=== PATIENT | female | born 1980 | race Caucasian/White ===

== ENCOUNTER 2016-11-02 00:08 | Inpatient (IN) | payer BC ==
[~2016-11-02] VITALS: Ht 157.5 cm; Wt 88.5 kg
[~2016-11-02 00:08] MED LIST: FERR325T51 PO; MTR600X PO; PRENTAB26 PO
[2016-11-02] MEDS ORDERED: PENICILLIN G POTASSIUM IV 3 MU in DEXTROSE 5% 100ML 100 ML IV PRN (00:45)
[2016-11-02] MEDS ORDERED: PENICILLIN G POTASSIUM IV 6 MU in DEXTROSE 5% 250ML 250 ML IV ONE (00:45)
[2016-11-02] MEDS ORDERED: LACTATED RINGER'S 1000ML 1,000 ML IV SCH (00:45)
[2016-11-02] MEDS ORDERED: LACTATED RINGER'S 1000ML 1,000 ML IV PRN (00:45)
[2016-11-02] MEDS ORDERED: EpHEDrine SULFATE INJ 50 MG/ML AMP ONE (01:22)
[2016-11-02] MEDS ORDERED: FENTANYL 2MCG/ML ROPIV 1.25MG/ML 100ML BAG EPI ONE (01:22)
[2016-11-02] MEDS ORDERED: BUPIVACAINE 0.25% 30 ML VIAL ONE (01:22)
[2016-11-02] MEDS ORDERED: FENTANYL CITRATE INJ 50 MCG/1 ML 2 ML VIAL ONE (01:23)
--- NOTE | 2016-11-02 01:28 | HISTORY & PHYSICAL EXAMINATION ---
DATE OF ADMISSION: 11/02/2016 CHIEF COMPLAINT: Contractions. HISTORY OF PRESENT ILLNESS: The patient is a 36-year-old G2, P1-0-0-1 at 40 weeks and 2 days of gestation, who has been feeling contractions and pelvic pressure for the last 2 hours. She presented to labor and delivery with those complaints. She denies leakage of fluid or vaginal bleeding. She reported good movements. She denies headaches, change in her vision, nausea, vomiting, epigastric or right upper quadrant pain. Her has been complicated by: 1. Advanced maternal age. 2. Abnormal glucose tolerance in . Three-hour OGGT was normal. GBS positive. PAST MEDICAL HISTORY: As above and exercise induced asthma. PAST SURGICAL HISTORY: Hysteroscopy, myomectomy with MyoSure in 2013 at [facility], colposcopy of cervix in 2003. MEDICATIONS: vitamins and iron sulfate. ALLERGIES: SULFA CAUSED LIP SWELLING. SOCIAL HISTORY: The patient denies smoking, alcohol or drug use. She is , lives with her and her 1-year-old daughter. OBSTETRICAL HISTORY: The patient delivered full term September 2015, spontaneous vaginal, no complications. GYNECOLOGIC HISTORY: The patient denies any history of STDs including Chlamydia, gonorrhea, herpes. LABS: Her blood type is A positive, antibody screen negative. H\T\H was 11/33. Rubella titer positive, RPR nonreactive, hepatitis B surface antigen negative. Urine culture was negative. GC chlamydia cultures were negative. Glucola was 134. Repeat H\T\H was 10.5/30.1. Three-hour OGGT was within normal limits. GBS culture was positive on September 29. PHYSICAL EXAMINATION: GENERAL: The patient is alert, oriented x3, she is in moderate distress with contractions. VITAL SIGNS: Stable. Afebrile. CARDIOVASCULAR SYSTEM: S1, S2, RRR. LUNGS: Clear to auscultation bilaterally. ABDOMEN: Soft, gravid. Smooth 7-1/2 to 8 pounds. EXTREMITIES: Nontender, no edema. PELVIC: Cervix is 6 cm dilated, 80% effaced, -2, vertex. heart rate 130s with [id number] variability, no decelerations. [place] contractions every 2-4 minutes. ASSESSMENT: The patient is a 36-year-old 2, para 1-0-0-1 at 40 weeks and 2 days of gestation, presenting in active labor with contractions. Vital signs stable, afebrile. heart rate reassuring. Group B streptococcus positive. PLAN: Admit her, start IV fluids, CBC. The patient desires epidural for pain Anticipate spontaneous vaginal delivery. MTDD
[2016-11-02 01:56] LABS: HEMATOCRIT 29.1 % (37-47); MEAN CELL VOLUME 83.4 fL (80-100); MEAN CORPUSCULAR HEMOGLOBIN 27.8 pg (25-34); MEAN CORPUSCULAR HGB CONC 33.3 g/dl (32-36); MEAN PLATELET VOLUME 9.9 fL (7.4-10.4); PLATELET COUNT 224 K/uL (130-400); RED BLOOD COUNT 3.49 M/uL (4.2-5.4); WHITE BLOOD COUNT 15.07 K/uL (4.8-10.8)
[2016-11-02] MEDS ORDERED: LACTATED RINGER'S 1000ML 500 ML IV PRN ×2 (02:32→04:31)
[2016-11-02] MEDS ORDERED: NALOXONE HCL INJ 1 MG in SODIUM CHLORIDE 0.9% 1000ML 1,000 ML IV PRN (02:32)
[2016-11-02] MEDS ORDERED: FENTANYL 2MCG/ML ROPIV 1.25MG/ML 100ML BAG EPI PRN (02:45)
[2016-11-02] MEDS ORDERED: ONDANSETRON INJ 2 MG/ML 2 ML VIAL IV PRN (02:45)
[2016-11-02] MEDS ORDERED: NALBUPHINE HCL INJ 10 MG/ML AMP IV PRN (02:45)
[2016-11-02] MEDS ORDERED: NALOXONE HCL INJ 0.4 MG/1 ML VIAL/CARP IV PRN (02:45)
[2016-11-02] MEDS ORDERED: DiphenhydrAMINE HCL 50 MG/ML VIAL IV PRN (02:45)
[2016-11-02] MEDS ORDERED: EpHEDrine SULFATE INJ 50 MG/ML AMP IV PRN (02:45)
[2016-11-02 03:26] VITALS: Ht 157.5 cm; Wt 88.5 kg
[2016-11-02] MEDS ORDERED: OXYTOCIN 30 UNITS/500ML NSS IV PRN ×2 (04:45→07:30)
[2016-11-02] MEDS ORDERED: DIPHTHERIA/TETANUS/PERTUSSIS 0.5 ML SYR/VIAL IM. ONE (07:30)
[2016-11-02] MEDS ORDERED: OXYCODONE/ACETAMINOPHEN 5-325 TAB PO PRN (07:30)
[2016-11-02] MEDS ORDERED: SUPERCREAM 0.870 % 15GM JAR EXT PRN (07:30)
[2016-11-02] MEDS ORDERED: LANOLIN OINT EXT PRN ×2 (07:30)
[2016-11-02] MEDS ORDERED: HYDROCORTISONE ACETATE 25 MG SUPP PR PRN (07:30)
[2016-11-02] MEDS ORDERED: MEASLES, MUMPS & RUBELLA VIRUS VIAL SQ. ONE (07:30)
[2016-11-02] MEDS ORDERED: BENZOCAINE 20% AER SPR 82.5 GM CAN EXT PRN (07:30)
[2016-11-02] MEDS ORDERED: ACETAMINOPHEN 325 MG TAB PO PRN (07:30)
[2016-11-02] MEDS ORDERED: PRENATAL VITAMIN TAB PO SCH (08:00)
[2016-11-02] MEDS ORDERED: FERROUS SULFATE 325 MG TAB PO SCH (08:00)
--- NOTE | 2016-11-02 08:30 | Anesthesia Procedure Note ---
Anesthesia Epidural Removal Nt Date & Time Nov 02, 2016 at 08:30 Notes Mental Status: alert / awake / arousable, participated in evaluation Nausea / Vomiting: adequately controlled Pain: adequately controlled Airway Patency, RR, SpO2: stable & adequate BP & HR: stable & adequate Hydration State: stable & adequate Neuraxial Anesthesia: was administered Anesthetic Complications: no major complications apparent, pt satisfied with anesthetic care Epidural: removed without complications, with tip intact
--- NOTE | 2016-11-02 09:24 | DELIVERY SUMMARY ---
DATE OF OPERATION: 11/02/2016 DATE OF DELIVERY: 11/02/2016. TIME OF DELIVERY OF BABY: 7:00 a.m. TIME OF DELIVERY OF PLACENTA: 7:14 a.m. DETAILS OF DELIVERY: The patient was found to be fully dilated and desired to push. She pushed only twice and delivered the head without difficulty. There was a nuchal cord around the neck x1 which was reduced. Shoulders were delivered with minimal traction and baby was handed off to the mother where mouth and nose were suctioned. Cord was clamped x2 and cut. It was 3-vessel cord. Cord blood was obtained. Perineum and vagina were checked for lacerations. There was a small 1 cm first degree perineal laceration which was repaired with 3-0 Vicryl in a running locked fashion. Good hemostasis was achieved. Rest of the vagina and labia and perineum were intact. Then the placenta was found to be in the vagina and delivered spontaneously as intact and complete. Uterus was explored and found to be empty. Lower segment was cleared of all clots and debris. Fundus was firm. EBL was 200. Mother and baby tolerated the procedure well. Sponge, lap, needle, instrument count was correct x2. Baby was a viable female . Apgars 8/10. Weight is 3915 gr. No complications happened and I was present during whole procedure. I attest to the content of the Intraoperative Record and any orders documented therein. Any exceptions are noted below. MTDD
[2016-11-02 10:00] VITALS: BP 133/85; PULSE 93; TEMP 36.8
[2016-11-02 11:50] VITALS: BP 129/85; PULSE 83; TEMP 37.1
[2016-11-02] MEDS: IBUPROFEN 600 MG TAB PO PRN ×2 (15:41→20:28)
[2016-11-02 15:45] VITALS: BP 138/87; PULSE 57; TEMP 37.2
[2016-11-02 19:50] VITALS: BP 136/86; PULSE 76; TEMP 36.9
[2016-11-02] MEDS: DOCUSATE SODIUM 100 MG CAP PO SCH (20:30)
[2016-11-02 23:30] VITALS: BP 130/73; PULSE 68; TEMP 36.8
[2016-11-03] MEDS: IBUPROFEN 600 MG TAB PO PRN ×3 (01:19→14:39)
[2016-11-03 03:46] VITALS: BP 119/79; PULSE 86; TEMP 36.9
[2016-11-03 07:30] VITALS: BP 142/89; PULSE 73; TEMP 36.6; O2SAT 94
[2016-11-03] MEDS: DOCUSATE SODIUM 100 MG CAP PO SCH (07:32)
--- NOTE | 2016-11-03 08:17 | OB/GYN Progress Note ---
AGILE SCR[facility] COACH Progress Note Date of Service: Nov 03, 2016. Patient is seen and examined. She feels well, no complaints. Ambulating without dizziness Voiding without difficulty Tolerating regular diet with out N&V Bleeding is minimal No fever/ chills/ CP/ SOB/ N&V/ Leg pain Breast feeding without problems Date Time Temp Pulse Resp B/P Pulse Ox O2 Delivery O2 Flow Rate FiO2 11/03/16 03:46 36.9 86 18 119/79 Room Air 11/02/16 23:30 36.8 68 18 130/73 Room Air 11/02/16 23:30 Room Air 11/02/16 19:50 36.9 76 16 136/86 Room Air 11/02/16 19:50 Room Air 11/02/16 15:45 Room Air 11/02/16 15:45 37.2 57 18 138/87 Room Air 11/02/16 11:50 37.1 83 18 129/85 Room Air 11/02/16 10:00 Room Air 11/02/16 10:00 36.8 93 18 133/85 Room Air PE: General: Alert, orientedx3, NAD Abd: soft, NT, fundus firm, below Umbilicus Perineum intact, Lochia rubra minimal Ext; NT, no edema AP: 36 yo s/p , ppd# 1 VSS Afebrile doing well GBS+ Continue routine care All questions were answered D/C home tomorrow
[2016-11-03 08:48] LABS: HEMATOCRIT 25.6 % (37-47)
--- NOTE | 2016-11-03 11:48 | Discharge Instructions ---
Discharge Instructions Admission Reason for Admission: LABOR Discharge Discharge Diagnosis / Problem: Discharge Goals Goal(s): Routine recovery after delivery Medications Continue Dispensed Medications: lansinoh Activity Recommendations Activity Limitations: as noted below Lifting Limitations: gradually increase as tolerated Exercise/Sports Limitations: until after follow-up appointment May Resume Sexual Activity: after follow-up appointment Shower/Bathe: no limitations ACTIVITY RECOMMENDATIONS: * Gradual return to full activity over the next 2-3 weeks. * No lifting - nothing heavier than baby over the next 2-3 weeks. * Do not engage in vigorous exercise, sexual activity or sports until cleared by your physician. * Do not drive or operate any motorized equipment until cleared by your physician. * You may shower/bathe daily. BREAST CARE: If you are not breast feeding: * Wear a supportive bra 24 hours a day for one to two weeks. * Avoid stimulating your breasts and nipples as much as possible during the first few weeks after delivery. * When taking a shower, have the warm water hit your back, not breasts. * When your breasts feel full, apply ice packs. Usually three to four times a day helps ease the discomfort. * Take a mild pain medication (Tylenol/Motrin) when you are uncomfortable. If breast feeding: * Use breast milk to lubricate nipples. Lansinoh cream may be used for sore nipples. You do not need to remove cream prior to breast feeding. If using a different brand of cream, check the label for directions regarding removal of cream prior to nursing. * Wear a supportive bra. * If having problems with breasts or breast feeding, call a business info consultant or your health care provider. EPISIOTOMY CARE: After delivery, if you have an episiotomy (stitches), the following steps will ease discomfort and aid healing. * For the first 24 hours after delivery, place ice packs next to your episiotomy to help reduce swelling. * After the first 24 hour-period, sitz baths, either portable or in the tub, are suggested. A shower with a shower arm sprayed over the episiotomy may be comforting. * Liz care should be done after each voiding and bowel movement. Squirt warm water from a plastic bottle over the perineum (region of the body between the anus and urinary opening) and pat dry. * Use Dermoplast to ease discomfort. Shake container. [place] directly over the episiotomy. * Place a Tucks on a clean sanitary pad next to your episiotomy. OVER THE COUNTER MEDICATION: * For discomfort or pain, you may use Acetaminophen (Tylenol), Ibuprofen (Advil ), or Naproxen (Aleve) following the package directions. * For constipation you may use Colace following the package directions. SPECIAL CARE INSTRUCTIONS: When you are discharged from the hospital, it is important for you to follow the instructions listed below: * During the first week at home, you should be able to care for yourself and your baby. In addition, the usual light household activities are encouraged. * Limit your activities to the way you feel. Do not try to clean the house or move furniture. Be sensible. * If you actively engage in sports and have done so up until the time of your delivery, you may resume these activities as soon as you feel able. This may take up to one month or even longer. Use good judgment. * Continue to take your vitamins for at least six weeks after the of your baby. * Your diet need not be limited unless you were on a special diet before your delivery. Breast-feeding mothers need around 2500 calories per day and at least 64-80 ounces of fluid per day (8 to 10 glasses). * You should eat foods from the four major food groups. Crash diets or fad diets are to be avoided. Eating lean meats, fresh fruits and vegetables, low-fat dairy products, high fiber foods and a regular exercise program, will help you get back to your pre- weight without putting your health at risk. * Constipation is sometimes a problem after delivery. Take a mild laxative as needed. If breast feeding, Milk of Magnesia is acceptable to use. You may use a suppository or Fleets enema if no episiotomy. * A daily shower or tub bath is suggested. Be sure to thoroughly and gently dry the perineum. * A bloody vaginal discharge will usually continue until around four weeks post . A small amount of bleeding may continue for as long as six weeks. Vaginal discharge changes from the bright red bleeding after delivery to pink then brownish and finally yellowish-pink before becoming white and disappearing. * Bleeding may increase with activity. Your first period may come in 4-8 weeks. If you are breast feeding, your period may be delayed even longer. * Octa (sex) can begin whenever both you and your partner feel comfortable and do not have any form of genital infection. It is recommended that you wait until after your return appointment and discuss with your physician. If you have questions, please talk to your health care practitioner. A condom should be used to prevent infection and . * Foreplay, gentle intercourse and lubrication is very important the first several times to prevent pain. A water-based lubricant such as K-Y jelly or Astroglide may be used. * Tampons may be used six weeks after delivery. * Douching should be avoided for 6 weeks after delivery. * If you have RH negative blood and your baby is RH positive, you will receive RHOGAM by injection prior to discharge. The nurse will give you a card to keep with you that has the date and place that you received RHOGAM after delivery. * During your care, you had a Rubella screen done to check for the presence of rubella antibodies in your blood. If your test was negative, you will receive a Rubella vaccine prior to discharge. This vaccine may cause a fever, soreness at the injection site and flu-like symptoms. If these symptoms persist, notify your health care practitioner. is not advised for three months after a Rubella vaccine. There is a higher chance of having a baby with defects if conceived within three months of getting the vaccine. * If you were discharged 24 hours from delivery or before 48 hours: Visiting nurses will come to your home 48 hours after discharge to assess you and your baby. The visiting nurse will meet with you while you are in the hospital to arrange a time and get directions to your home. * Verbalizes understanding of car seat law as reviewed with patient nursing. * Car Seat hand-out given and reviewed with patient by nursing. * Shaken baby information reviewed with patient by nursing. Call you doctor if: * Heavy bleeding (saturating several pads an hour) or passing clots the size of your fist. * A fever >101 degrees F (38.3 degrees C) on two occasions four hours apart and/or chills. * Unusual pain in the pelvic or vaginal areas. * "Baby Blues" lasting longer than two weeks. If you have any questions or concerns, call your health care practitioner at . FOLLOW-UP VISIT: * Please call the office at to schedule a 6 week examination. It is important you keep this appointment. * It is important for you to make arrangements for either yearly or twice yearly check-ups thereafter. . Current Hospital Diet Patient's current hospital diet: Regular OB Diet Discharge Diet Recommended Diet: Regular Diet Pending Studies Studies pending at discharge: no Medical Emergencies . Who to Call and When: Medical Emergencies: If at any time you feel your situation is an emergency, please call 911 immediately. . Non-Emergent Contact Non-Emergency issues call your: Surgeon Call Non-Emergent contact if: temperature is above 100.5, your pain is not controlled . . "Provider Documentation" section prepared by Khadar Ocasio. VTE Core Measure Inpt VTE Proph given/why not?: Treatment not indicated
[2016-11-03 14:30] VITALS: BP 126/83; PULSE 86; TEMP 36.6; O2SAT 97
[2016-11-03 15:37] VITALS: BP_DIAS 83; PULSE 86; TEMP 36.6
[2016-11-03] MEDS ORDERED: FERROUS SULFATE 325 MG TAB PO SCH (20:00)
[2016-11-03] MEDS ORDERED: BISACODYL 5 MG TABEC PO SCH (20:00)
[2016-11-04] MEDS ORDERED: BISACODYL 10 MG SUPP PR PRN (07:00)
== END 2016-11-03 15:40 | disposition home or self-care (01) | DRG 775 ==
LOC: C.LD 00:08 → C.OPB 00:08 → C.LD 00:47 → C.OPB 00:47 → C.OBG 09:43
PROVIDERS: ADMIT Obstetrics & Gynecology; ATTEND Obstetrics & Gynecology
PROC: 0HQ9XZZ Repair Perineum Skin, External Approach (ICD-10-PCS; principal; 2016-11-02)
PROC: 10E0XZZ Delivery of Products of Conception, External Approach (ICD-10-PCS; principal; 2016-11-02)
DX: O48.0 Post-term pregnancy (principal); Z37.0 Single live birth; O70.0 First degree perineal laceration during delivery; O99.52 Diseases of the respiratory system complicating childbirth; J45.990 Exercise induced bronchospasm; O69.81X0 Labor and delivery complicated by cord around neck, without compression, not applicable or unspecified; O99.824 Streptococcus B carrier state complicating childbirth; O99.814 Abnormal glucose complicating childbirth; O99.02 Anemia complicating childbirth; D64.9 Anemia, unspecified; Z79.899 Other long term (current) drug therapy; Z3A.40 40 weeks gestation of pregnancy